=== PATIENT | female | born 1995 | race Hispanic/Latino ===

== ENCOUNTER 2024-04-17 01:22 | Emergency (ER) | payer OTHER ==
[~2024-04-17] VITALS: Ht 152.4 cm; Wt 79.4 kg
[2024-04-17 01:58] VITALS: PULSE 80; RESP 16; TEMP 98.7; O2SAT 100
[2024-04-17] MEDS: PENICILLIN G BENZATHINE LA 1.2 MU TBX IM STA (02:05)
[2024-04-17] MEDS ORDERED: PENICILLIN G BENZATHINE LA 1.2 MU TBX ONE (02:05)
== END 2024-04-17 02:30 | disposition home or self-care (01) ==
LOC: ER 01:30
DX: J03.90 Acute tonsillitis, unspecified (principal)
CPT/HCPCS: 99282; J0561